=== PATIENT | female | born 1985 | race Two or more races ===

== ENCOUNTER 2022-12-14 05:51 | Emergency (ER) | payer MEDICAID ==
[~2022-12-14] VITALS: Ht 154.9 cm; Wt 63.6 kg
[2022-12-14 06:54] LABS: Urine Bacteria FEW /hpf (None Seen); Urine Blood 2+ /uL (Negative); Urine Clarity Clear (Clear); Urine Protein, UAD Negative (Negative); Urine Specific Gravity 1.003 (1.001-1.035); Urine Urobilinogen Normal (Negative); Urine WBC 3 /hpf (0 - 5); Urine pH 6.5 (5.0-8.0)
[2022-12-14 07:00] LABS: Urine Color Straw (Yellow)
[2022-12-14 07:19] VITALS: BP 108/55; PULSE 63; RESP 16; TEMP 98; O2SAT 96
[2022-12-14] MEDS ORDERED: IOHEXOL 300 MG/ML 100ML BOTTLE IJ ONE (08:00)
[2022-12-14] MEDS ORDERED: ACYC400T16 PO (09:13)
== END 2022-12-14 09:14 | disposition home or self-care (01) ==
LOC: ER 05:51
DX: R31.29 Other microscopic hematuria (principal); K80.20 Calculus of gallbladder without cholecystitis without obstruction
CPT/HCPCS: 74178; 81001; 99285; Q9967

== ENCOUNTER 2023-09-18 04:15 | Emergency (ER) | payer MEDICAID ==
[~2023-09-18] VITALS: Ht 154.9 cm; Wt 68.6 kg
[~2023-09-18 04:15] MED LIST: ACYC400T16 PO
[2023-09-18 04:36] LABS: Urine Bacteria None Seen /hpf (None Seen)
[2023-09-18 04:50] LABS: Urine Blood 3+ /uL (Negative); Urine Clarity Turbid (Clear); Urine Color Colorless (Yellow); Urine Protein, UAD 1+ (Negative); Urine Specific Gravity 1.015 (1.001-1.035); Urine Urobilinogen Normal (Negative); Urine WBC 303 /hpf (0 - 5); Urine WBC Clumps PRESENT /hpf (None Seen); Urine pH 6.5 (5.0-9.0)
[2023-09-18] MEDS: ACETAMINOPHEN 325 MG TAB PO ONE (05:29)
[2023-09-18] MEDS ORDERED: NITR-52 PO (05:31)
[2023-09-18 05:50] VITALS: BP 102/62; PULSE 62; RESP 18; TEMP 98.7; O2SAT 100
== END 2023-09-18 05:58 | disposition home or self-care (01) ==
LOC: ER 04:15
DX: N39.0 Urinary tract infection, site not specified (principal); R51.9 Headache, unspecified
CPT/HCPCS: 81001

== ENCOUNTER 2024-06-25 20:58 | Emergency (ER) | payer SELFPAY ==
[~2024-06-25 20:58] MED LIST changes: +NITR-52 PO
== END 2024-06-25 22:03 | disposition left against medical advice (07) ==
LOC: ER 20:58
DX: T78.49XA Other allergy, initial encounter (principal); Z53.21 Procedure and treatment not carried out due to patient leaving prior to being seen by health care provider; X58.XXXA Exposure to other specified factors, initial encounter